=== PATIENT | male | born 1975 | race Caucasian/White ===

== ENCOUNTER 2017-05-11 22:59 | Emergency (ER) | payer BC ==
[~2017-05-11] VITALS: Ht 170.2 cm; Wt 72.5 kg
[~2017-05-11 22:59] MED LIST: ADVAIR IH; ALBUTEROL0.09 MG/A1 IH; CELEXA; SINGULAIR 110 MG/TAB PO
[2017-05-11 23:11] VITALS: TEMP 97.8
[2017-05-11] MEDS ORDERED: AMBIEN 5MG TABLE5 MG PO (23:17)
[2017-05-11] MEDS ORDERED: WELLBUTRIN 75MG75 MG PO (23:17)
[2017-05-11] MEDS ORDERED: LEXAPRO20 MG PO (23:18)
[2017-05-11 23:37] LABS: BASO # 0.1 (0.0-0.2); EOS # 0.3 (0.0-0.7); EOS % 3.7 % (0-4.0); GRAN # 3.3 (1.4-6.5); HEMATOCRIT 44.9 % (42.0-52.0); HEMOGLOBIN 15.5 g/dl (13.5-18.0); LYMPH # 2.8 (1.2-3.4); LYMPH % 40.7 % (20.0-51.0); MEAN CELL VOLUME 94 fl (80.0-100.0); MEAN CORPUSCULAR HEMOGLOBIN 33 pg (27.0-31.0); MEAN CORPUSCULAR HGB CONC 35 g/dl (33.0-37.0); MEAN PLATELET VOLUME 9.7 fl (7.4-10.4); MONO # 0.4 (0.1-0.6); MONO % 6.3 % (1.7-9.3); PLATELET COUNT 232 K/mm3 (130-400); RED BLOOD COUNT 4.77 M/mm3 (4.20-5.60); REDCELL DISTRIBUTION WIDTH-CV 12.2 % (11.5-14.5); WHITE BLOOD COUNT 6.8 K/mm3 (4.8-10.8)
[2017-05-11 23:50] LABS: ANION GAP 11 mmol/L (7-16); BLOOD UREA NITROGEN 12 mg/dL (9-20); CALCIUM 8.5 mg/dL (8.4-10.2); CARBON DIOXIDE 22 mmol/L (22-30); CHLORIDE 104 mmol/L (98-107); CREATININE, serum 0.79 mg/dL (0.66-1.25); GLUCOSE 136 mg/dL (74-106); LIPASE 167 U/L (23-300); POTASSIUM 3.5 mmol/L (3.4-5.0); SODIUM 138 mmol/L (137-145)
[2017-05-11 23:52] LABS: AMPHETAMINE URINE NEGATIVE; BARBITURATES URINE NEGATIVE; BENZODIAZEPINES URINE NEGATIVE; BUPRENORPHINE URINE NEGATIVE; METHADONE URINE NEGATIVE; OPIATES URINE NEGATIVE; OXYCODONE URINE NEGATIVE; PHENCYCLIDINE URINE NEGATIVE; PROPOXYPHENE URINE NEGATIVE; THC CANNABINOIDS URINE NEGATIVE
[2017-05-11 23:52] LABS: ACETAMINOPHEN < 10 ug/mL (10-30); SALICYLATE < 1.0 mg/dL
[2017-05-12 00:21] LABS: TROPONIN-I < 0.012 ng/mL (0.000-0.034)
[2017-05-12 01:39] VITALS: BP 134/88; PULSE 66
== END 2017-05-12 01:25 | disposition home or self-care (01) ==
LOC: COL.ER 22:59
PROVIDERS: Emergency Medicine
DX: R45.851 Suicidal ideations (principal); F32.9 Major depressive disorder, single episode, unspecified; Z72.89 Other problems related to lifestyle

== ENCOUNTER 2017-05-13 22:48 | Inpatient (IN) | payer BC ==
[~2017-05-13] VITALS: Ht 170.2 cm; Wt 68.4 kg
[~2017-05-13 22:48] MED LIST changes: +AMBIEN 5MG TABLE5 MG PO; +LEXAPRO20 MG PO; +WELLBUTRIN 75MG75 MG PO
[2017-05-13 23:18] LABS: BASO # 0.1 (0.0-0.2); BASO % 0.8 % (0.0-2.0); EOS # 0.1 (0.0-0.7); EOS % 1.1 % (0-4.0); GRAN % 54.7 % (42.2-75.2); HEMATOCRIT 43.4 % (42.0-52.0); LYMPH # 2.7 (1.2-3.4); LYMPH % 36.6 % (20.0-51.0); MEAN CELL VOLUME 93 fl (80.0-100.0); MEAN CORPUSCULAR HEMOGLOBIN 32 pg (27.0-31.0); MEAN CORPUSCULAR HGB CONC 35 g/dl (33.0-37.0); MEAN PLATELET VOLUME 9.7 fl (7.4-10.4); MONO # 0.5 (0.1-0.6); MONO % 6.4 % (1.7-9.3); PLATELET COUNT 234 K/mm3 (130-400); RED BLOOD COUNT 4.66 M/mm3 (4.20-5.60); WHITE BLOOD COUNT 7.4 K/mm3 (4.8-10.8)
[2017-05-13 23:32] LABS: ANION GAP 12 mmol/L (7-16); BLOOD UREA NITROGEN 8 mg/dL (9-20); CALCIUM 8.5 mg/dL (8.4-10.2); CARBON DIOXIDE 22 mmol/L (22-30); CHLORIDE 98 mmol/L (98-107); CREATININE, serum 0.72 mg/dL (0.66-1.25); GLUCOSE 102 mg/dL (74-106); POTASSIUM 3.5 mmol/L (3.4-5.0); SODIUM 132 mmol/L (137-145)
[2017-05-13 23:33] LABS: ACETAMINOPHEN < 10 ug/mL (10-30); SALICYLATE < 1.0 mg/dL
[2017-05-14 00:14] LABS: AMPHETAMINE URINE NEGATIVE; BARBITURATES URINE NEGATIVE; BENZODIAZEPINES URINE NEGATIVE; BUPRENORPHINE URINE NEGATIVE; METHADONE URINE NEGATIVE; OPIATES URINE NEGATIVE; OXYCODONE URINE NEGATIVE; PHENCYCLIDINE URINE NEGATIVE; PROPOXYPHENE URINE NEGATIVE; THC CANNABINOIDS URINE NEGATIVE
[2017-05-14 15:41] VITALS: BP 156/99; PULSE 58; TEMP 98.5
[2017-05-14 15:44] VITALS: BP 156/99; PULSE 57; TEMP 98.5
[2017-05-14] MEDS ORDERED: LEXAPRO20 MG PO (15:46)
[2017-05-14 17:26] LABS: HEMATOCRIT 45.4 % (42.0-52.0); HEMOGLOBIN 15.3 g/dl (13.5-18.0); MEAN CELL VOLUME 95 fl (80.0-100.0); MEAN CORPUSCULAR HEMOGLOBIN 32 pg (27.0-31.0); MEAN CORPUSCULAR HGB CONC 34 g/dl (33.0-37.0); MEAN PLATELET VOLUME 9.9 fl (7.4-10.4); PLATELET COUNT 242 K/mm3 (130-400); RED BLOOD COUNT 4.76 M/mm3 (4.20-5.60); REDCELL DISTRIBUTION WIDTH-CV 12.1 % (11.5-14.5); WHITE BLOOD COUNT 8.7 K/mm3 (4.8-10.8)
[2017-05-14 17:29] VITALS: BP 142/86; PULSE 60; TEMP 97.9
[2017-05-14 17:41] LABS: BILIRUBIN,TOTAL 0.6 mg/dL (0.0-1.0); CREATININE, serum 0.91 mg/dL (0.66-1.25); MAGNESIUM 2.1 mg/dL (1.6-2.3); TOTAL PROTEIN 6.7 gm/dL (6.4-8.2)
[2017-05-14 17:45] LABS: PROTHROMBIN TIME 10.9 SECONDS (9.7-12.8)
[2017-05-14 17:47] LABS: PARTIAL THROMBOPLASTIN TIME 30.7 SECONDS (26.0-37.0)
[2017-05-14 21:24] VITALS: BP 128/85; PULSE 58; TEMP 98.6
[2017-05-14 22:01] VITALS: BP 138/89; PULSE 53; TEMP 98.8
[2017-05-14 22:54] VITALS: BP 138/89; PULSE 53; TEMP 98.8
== END 2017-05-14 23:20 | DRG 897 ==
LOC: COL.ER 22:48 → SURG 05-14 14:30
PROVIDERS: Emergency Medicine; Psychiatry & Neurology Psychiatry
DX: F10.229 Alcohol dependence with intoxication, unspecified (principal); Y90.8 Blood alcohol level of 240 mg/100 ml or more; F32.9 Major depressive disorder, single episode, unspecified
CPT/HCPCS: OP; 90791-AI

== ENCOUNTER 2020-06-26 09:43 | Emergency (ER) | payer BC ==
[~2020-06-26] VITALS: Ht 170.2 cm; Wt 76.4 kg
[2020-06-26 09:49] VITALS: BP 139/94; TEMP 98.4
[2020-06-26 10:17] LABS: COLLECTION METHOD CLEAN CATCH
[2020-06-26 10:21] LABS: BASO # 0.1 (0.0-0.2); BASO % 0.8 % (0.0-2.0); EOS # 0.1 (0.0-0.7); EOS % 1.5 % (0-4.0); GRAN # 5.3 (1.4-6.5); HEMATOCRIT 47.8 % (42.0-52.0); HEMOGLOBIN 15.9 g/dl (13.5-18.0); LYMPH % 33.3 % (20.0-51.0); MEAN CELL VOLUME 93 fl (80.0-100.0); MEAN CORPUSCULAR HEMOGLOBIN 31 pg (27.0-31.0); MEAN CORPUSCULAR HGB CONC 33 g/dl (33.0-37.0); MEAN PLATELET VOLUME 10.3 fl (7.4-10.4); MONO # 0.6 (0.1-0.6); MONO % 6.1 % (1.7-9.3); PLATELET COUNT 309 K/mm3 (130-400); RED BLOOD COUNT 5.15 M/mm3 (4.20-5.60); REDCELL DISTRIBUTION WIDTH-CV 12.5 % (11.5-14.5)
[2020-06-26 10:37] LABS: ALANINE AMINOTRANSFERASE 24 U/L (4-49); ALBUMIN 4.6 gm/dL (3.5-5.0); ALKALINE PHOSPHATASE 91 U/L (50-136); ANION GAP 8 mmol/L (7-16); AST,SGOT 35 U/L (15-37); BILIRUBIN,TOTAL 0.9 mg/dL (0.0-1.0); BLOOD UREA NITROGEN 11 mg/dL (9-20); CALCIUM 9.7 mg/dL (8.4-10.2); CARBON DIOXIDE 29 mmol/L (22-30); CHLORIDE 105 mmol/L (98-107); CREATININE, serum 0.94 (0.66-1.25); GLUCOSE 103 mg/dL (74-106); LIPASE 62 U/L (23-300); MUCOUS Present /lpf; PH 5 (5-8); POTASSIUM 4.2 mmol/L (3.4-5.0); SODIUM 141 mmol/L (137-145); SQUAMOUS EPITHELIAL None Seen /hpf; TOTAL PROTEIN 7.5 gm/dL (6.4-8.2); URINE APPEARANCE Hazy; URINE BACTERIA None Seen /hpf; URINE BILIRUBIN Negative (NEGATIVE); URINE BLOOD 3+ (NEGATIVE); URINE COLOR Yellow; URINE GLUCOSE Negative (NEGATIVE); URINE KETONE Negative (NEGATIVE); URINE LEUKOCYTE ESTERASE Negative (NEGATIVE); URINE NITRATE Negative (NEGATIVE); URINE PROTEIN(semi-quant) Negative (NEGATIVE); URINE RBC >50 /hpf; URINE UROBILINOGEN Negative (NEGATIVE)
[2020-06-26 10:39] LABS: C-REACTIVE PROTEIN < 0.5 mg/dL (0.0-0.9)
[2020-06-26] MEDS ORDERED: NORCO 325 MG-51 TAB PO (10:39)
[2020-06-26] MEDS ORDERED: FLOMAX 0.40.4 MG/CAP PO (10:40)
[2020-06-26 11:50] VITALS: PULSE 78
== END 2020-06-26 11:50 | disposition home or self-care (01) ==
LOC: COL.ER 09:43
PROVIDERS: Emergency Medicine
DX: N20.0 Calculus of kidney (principal)
CPT/HCPCS: J1885; J2270; J2405; J7030; Q9967